=== PATIENT | male | born 1950 | race Caucasian/White ===

== ENCOUNTER 2016-11-26 16:11 | Emergency (ER) | payer BC ==
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
--- NOTE | 2016-11-26 18:03 | ED ORDER SUMMARY ---
..... Patient: CRISTI PARIS OrderSheet [facility] VisitID: [id number] [address] [place] [address] 66y, M Registration Date/Time: 11/26/2016 ORDER SHEET Weight: 99.7 kg (stated) Allergies: Penicillins GENERAL ORDERS: CT Head wo Cont Urgent (16:40 11/26/2016 Schuyler Fournier) (Ack 16:41 IJurca ER Tech1) (17:07 [facility]) MEDICATION ORDERS: Lidocaine-Epinephrine Injection 2 % (soln) (NOW, place at bedside) (17:00 11/26/2016 Schuyler Fournier) (Ack 17:14 DDean R.N.) (17:15 DDean R.N.) IV FLUIDS: ORDER SHEET NOTES: [Electronically signed by Halley Perera P.A.-C (18:21 11/26/2016)] [Electronically signed by Cristine Short R.N. (20:51 11/26/2016)] [Electronically locked/signed by Cristine Short R.N. (20:51 11/26/2016)]
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
--- NOTE | 2016-11-26 18:03 | ED ORDER SUMMARY ---
..... Patient: CRISTI PARIS OrderSheet [facility] VisitID: [id number] [address] [place] [address] 66y, M Registration Date/Time: 11/26/2016 ORDER SHEET Weight: 99.7 kg (stated) Allergies: Penicillins GENERAL ORDERS: CT Head wo Cont Urgent (16:40 11/26/2016 Schuyler Fournier) (Ack 16:41 IJurca ER Tech1) (17:07 [facility]) MEDICATION ORDERS: Lidocaine-Epinephrine Injection 2 % (soln) (NOW, place at bedside) (17:00 11/26/2016 Schuyler Fournier) (Ack 17:14 DDean R.N.) (17:15 DDean R.N.) IV FLUIDS: ORDER SHEET NOTES: [Electronically signed by Halley Perera P.A.-C (18:21 11/26/2016)] [Electronically signed by Cristine Short R.N. (20:51 11/26/2016)] [Electronically locked/signed by Cristine Short R.N. (20:51 11/26/2016)]
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
--- NOTE | 2016-11-26 20:52 | ED MED RECONCILIATION SUMMARY ---
Patient: CRISTI PARIS Medication Reconciliation Report [facility] VisitID: [id number] [address] [place] [address] 66y, M Registration Date/Time: 11/26/2016 Weight: 99.7 kg Height/Length: 70 in. BMI: 31.5 ALLERGIES: Penicillins The patient's Home Medications are listed below: THE FOLLOWING MEDICATIONS NEED TO BE RECONCILED: Aleve Oral 220 mg, 2x a day Allopurinol Oral 300 mg, daily AmLODIPine Besylate Oral 5 mg, daily Atenolol Oral 100 mg, daily LamoTRIgine Oral 100 mg, BID Lisinopril Oral 20 mg, daily Omeprazole Oral 40 mg, daily Sertraline HCl Oral 50 mg, daily The source(s) of the original Home Medication information: Not obtained. The following Medications were given to the patient in the Emergency Department: Lidocaine-Epinephrine [Injection] Injection 2 %, administered: 11/26/2016 5:00:00 PM The following Medications were prescribed to the patient: Take OTC medications according to label instructions. Available over the counter. -- Halley Perera P.A.-C Acetaminophen (available over the counter): take according to label instructions. -- Halley Perera, P.A.-C
--- NOTE | 2016-11-26 20:52 | ED MAR SUMMARY ---
..... Medication Administration Record [facility] [address] [place] [address] Patient: CRISTI PARIS Visit ID: [id number] 66y, M Weight: 99.7 kg Height/Length: 70 in BMI: 31.5 ALLERGIES: Penicillins Given 17:00 11/26/2016 HanCristine R.N. Medication Administered: LIDOCAINE-EPINEPHRINE [INJECTION] (LIDOCAINE-EPINEPHRINE), Dose: 2 % Injectable Injection. Medication Ordered: Lidocaine-Epinephrine Injection 2 % (soln) (NOW, place at bedside).
--- NOTE | 2016-11-26 20:52 | ED MAR SUMMARY ---
..... Medication Administration Record [facility] [address] [place] [address] Patient: CRISTI PARIS Visit ID: [id number] 66y, M Weight: 99.7 kg Height/Length: 70 in BMI: 31.5 ALLERGIES: Penicillins Given 17:00 11/26/2016 HanCristine R.N. Medication Administered: LIDOCAINE-EPINEPHRINE [INJECTION] (LIDOCAINE-EPINEPHRINE), Dose: 2 % Injectable Injection. Medication Ordered: Lidocaine-Epinephrine Injection 2 % (soln) (NOW, place at bedside).
--- NOTE | 2016-11-26 20:52 | ED MED RECONCILIATION SUMMARY ---
Patient: CRISTI PARIS Medication Reconciliation Report [facility] VisitID: [id number] [address] [place] [address] 66y, M Registration Date/Time: 11/26/2016 Weight: 99.7 kg Height/Length: 70 in. BMI: 31.5 ALLERGIES: Penicillins The patient's Home Medications are listed below: THE FOLLOWING MEDICATIONS NEED TO BE RECONCILED: Aleve Oral 220 mg, 2x a day Allopurinol Oral 300 mg, daily AmLODIPine Besylate Oral 5 mg, daily Atenolol Oral 100 mg, daily LamoTRIgine Oral 100 mg, BID Lisinopril Oral 20 mg, daily Omeprazole Oral 40 mg, daily Sertraline HCl Oral 50 mg, daily The source(s) of the original Home Medication information: Not obtained. The following Medications were given to the patient in the Emergency Department: Lidocaine-Epinephrine [Injection] Injection 2 %, administered: 11/26/2016 5:00:00 PM The following Medications were prescribed to the patient: Take OTC medications according to label instructions. Available over the counter. -- Halley Perera P.A.-C Acetaminophen (available over the counter): take according to label instructions. -- Halley Perera, P.A.-C
--- NOTE | 2016-11-26 20:52 | ED DISCHARGE INSTRUCTIONS ---
Patient: CRISTI PARIS General Instructions [facility] VisitID: [id number] [place] [address] 66y, M Registration Date/Time: 11/26/2016 Major head injury. No loss of consciousness. No concussion. No memory loss, confusion or neurological deficit. Single deep laceration to the scalp. INSTRUCTIONS Apply ice. Protect wound and keep wound area clean. Apply bacitracin twice daily. (suture removal 9 in 10 days). OTC Medications: Take OTC medications according to label instructions. Available over the counter. Acetaminophen (available over the counter): take according to label instructions. Follow-up: Follow up with your doctor in ten days. ADDITIONAL INFORMATION Head Injury, No Wake-Up (Adult) You have had a head injury. It does not appear serious at this time. Symptoms of a more serious problem (concussion, bruising, or bleeding in the brain) may appear later. Therefore, watch for the WARNING SIGNS listed below. Home Care: Your healthcare provider will tell you whether its okay to drive. If so, you can drive yourself home. For the next day or so, be careful when driving or using heavy machinery until you are sure you have no delayed symptoms. During the next 24 hours someone must stay with you to check for the signs below. It is not necessary to stay awake or be awakened during the night. If you have swelling of the face or scalp, apply an ice pack (ice cubes in a plastic bag, wrapped in a towel) for 20 minutes. Do this every 1-2 hours until the swelling starts to go down. Do not use aspirin or ibuprofen (Motrin, Advil) after a head injury.You may use acetaminophen (Tylenol)to control pain, unless another pain medicine was prescribed. [NOTE: If you have chronic liver or kidney disease or ever had a stomach ulcer or GI bleeding, talk with your doctor before using these medicines.] For the next 24 hours: Do not take alcohol, sedatives or medicines that make you sleepy. Avoid strenuous activities. No lifting or straining. If you have had any symptoms of a concussion today (nausea, vomiting, dizziness, confusion, headache, memory loss or if you were knocked out), do not return to sports or any activity that could result in another head injury until all symptoms are gone and you have been cleared by your doctor. A second head injury before fully recovering from the first one can lead to serious brain injury. Follow Up with your doctor if symptoms are not improving after 24 hours, or as directed. [NOTE: A radiologist will review any X-rays or CT scans that were taken. We will notify you of any new findings that may affect your care.] Get Prompt Medical Attention if any of the followingWARNING SIGNS occur: Repeated vomiting Severe or worsening headache or dizziness Unusual drowsiness, or unable to awaken as usual Confusion or change in behavior or speech, memory loss, blurred vision Convulsion (seizure) Increasing scalp or face swelling Redness, warmth or pus from the swollen area Fluid drainage or bleeding from the nose or ears Laceration, Scalp (Sutures Or Arthur) A laceration is a cut through the skin. This will require stitches (sutures) or arthur if it is deep. Home care The following guidelines will help you care for your laceration at home: During the first two days you may carefully rinse your hair in the shower to remove blood, glass or dirt particles. After two days you may shower and shampoo your hair normally. Have someone help you clean your wound every day: In the shower, wash the area with soap and water. Use a wet cotton swab to loosen and remove any blood or crust that forms. After cleaning, keep the wound clean and dry. Talk with your doctor before applying any antibiotic ointment to the wound. Reapply a fresh bandage. Do not put your head under water (no swimming) until the stitches or arthur have been removed. The doctor may prescribe an antibiotic cream or ointment to prevent infection. Do not stop taking this medication until you have finished the prescribed course or the doctor tells you to stop. The doctor may also prescribe medications for pain. Follow the doctors instructions for taking these medications. If you have chronic liver or kidney disease or ever had a stomach ulcer or GI bleeding, talk with your doctor before using these medicines. Follow-up care Follow up with your health care provider. Most scalp wounds heal within seven days. However, an infection can sometimes occur. Check the wound daily for the warning signs listed below. Stitches or arthur should be removed from the scalp in about 57 days. When to seek medical care Get prompt medical attention if any of these occur: Increasing pain in the wound Redness, swelling, or pus coming from the wound Fever of 100.4F (38C) or higher, or as directed by your health care provider If stitches or arthur come apart or fall out before your next appointment If the wound edges re-open Bleeding not controlled by direct pressure You have been given the following additional information: HEAD INJURY, No Wake-Up (Adult) Laceration, Scalp (Electronically signed by Halley Perera P.A.-C 11/26/2016 18:21)
== END 2016-11-26 18:15 | disposition home or self-care (01) ==
LOC: ED SRH 16:11
DX: S01.01XA Laceration without foreign body of scalp, initial encounter (principal); Z88.0 Allergy status to penicillin; S09.90XA Unspecified injury of head, initial encounter; Y04.2XXA Assault by strike against or bumped into by another person, initial encounter; Y93.89 Activity, other specified; Y92.410 Unspecified street and highway as the place of occurrence of the external cause; Y99.9 Unspecified external cause status; I10 Essential (primary) hypertension; Z79.1 Long term (current) use of non-steroidal anti-inflammatories (NSAID); Z79.899 Other long term (current) drug therapy